=== PATIENT | male | born 1975 | race Caucasian/White ===

== ENCOUNTER 2023-04-01 03:10 | Observation (INO) ==
[2023-04-01] MEDS ORDERED: Al Hydrox/Mg Hydrox/Simet LIQ 30 ML UDC PO ONE (06:40)
[2023-04-01 07:32] LABS: ABS Lymphocytes 1.2 10^3/uL (1.0-4.8); ABS Monocytes 0.4 10^3/uL (0.0-1.1); ABS Neutrophils 6.8 10^3/uL (1.5-7.6); ABS Nucleated RBC 0.01 10^3/ul; Eosinophil % 0.2 %; Mean Corpuscular Hemoglobin 31.9 pg (27-33); Mean Corpuscular Volume 93.6 fL (80-97); Mean Platelet Volume 8.5 fL (7.5-11.2); Nucleated Red Blood Cells % 0.1 %/100WBC (0.0-0.8); Platelet Count 247 10^3/uL (150-450); Red Cell Distribution Width 13.1 % (12-17); White Blood Count 8.5 10^3/uL (3.6-10.2)
[2023-04-01 07:47] LABS: Albumin 4.7 g/dL (3.2-5.2); Albumin/Globulin Ratio 1.7 (1-3); C Reactive Protein 3.35 mg/L (<8.01); Calcium 9.5 mg/dL (8.6-10.3); Creatinine, Serum 0.94 mg/dL (0.67-1.17); Globulin 2.7 g/dL (2-4); Magnesium 2.2 mg/dL (1.9-2.7); Total Bilirubin 0.8 mg/dL (0.2-1.0); Total Protein 7.4 g/dL (6.4-8.9)
[2023-04-01] MEDS ORDERED: Iohexol 350 (CONTRAST) 500 ML MDV IV ONE (08:31)
[2023-04-01 10:00] LABS: Urine Appearance Clear; Urine Bilirubin Negative (Negative); Urine Blood Negative (Negative); Urine Color Straw; Urine Glucose Negative (Negative); Urine Ketones 1+ (Negative); Urine Nitrite Negative (Negative); Urine Protein Negative (Negative); Urine Urobilinogen Negative (Negative)
[2023-04-01] MEDS ORDERED: Ondansetron 4 mg VIAL 2 MG/ML 2 ml VIAL IV PRN (14:25)
[2023-04-01] MEDS ORDERED: Morphine 2 MG/ML SYRINGE IV PRN (14:34)
[2023-04-01] MEDS ORDERED: Acetaminophen IV 1 GM/100ML 1,000 MG/100 ML BAG IV PRN (14:35)
[2023-04-01] MEDS ORDERED: Piperacillin/Tazobac 3.375 BAG 3.375 GM/100 ML BAG IV ONE ×2 (14:37→14:41)
[2023-04-01] MEDS ORDERED: Zosyn per Pharmacy NOTE FOLLOW UP SCH (15:00)
[2023-04-01] MEDS: ZOSYN 3.375 GM Q8H per EXTENDED INFUSION IV SCH (18:31)
[2023-04-02] MEDS ORDERED: Lactated Ringers 1000 ml BAG 1,000 ML IV SCH ×2 (00:01→08:00)
[2023-04-02] MEDS ORDERED: NS 0.9% 1000 ml BAG 1,000 ML IV SCH (00:01)
[2023-04-02] MEDS: ZOSYN 3.375 GM Q8H per EXTENDED INFUSION IV SCH (02:40)
[2023-04-02 07:07] LABS: ABS Lymphocytes 2.1 10^3/uL (1.0-4.8); ABS Monocytes 0.4 10^3/uL (0.0-1.1); ABS Neutrophils 1.9 10^3/uL (1.5-7.6); Hematocrit 43.5 % (38-53); Hemoglobin 14.6 g/dL (13.2-16.3); Lymphocyte % 46.6 %; Mean Corpuscular Hemoglobin 31.7 pg (27-33); Mean Corpuscular Hgb Conc 33.7 g/dL (31-36); Mean Corpuscular Volume 94.1 fL (80-97); Mean Platelet Volume 8.9 fL (7.5-11.2); Platelet Count 219 10^3/uL (150-450); Red Blood Count 4.62 10^6/uL (4.06-5.63); Red Cell Distribution Width 13.2 % (12-17); White Blood Count 4.5 10^3/uL (3.6-10.2)
[2023-04-02] MEDS ORDERED: Lidocaine 1% w EPI 1:100,000 MDV 20 ML VIAL ONE (07:09)
[2023-04-02] MEDS ORDERED: Bupivacaine 0.25% SDV 30 ML ONE (07:09)
[2023-04-02] MEDS ORDERED: Famotidine IV 10 MG/ML 2 ml VIAL (20 mg) IV ONE (07:32)
[2023-04-02 07:52] LABS: Albumin 3.9 g/dL (3.2-5.2); Albumin/Globulin Ratio 1.6 (1-3); Calcium 8.8 mg/dL (8.6-10.3); Creatinine, Serum 1.03 mg/dL (0.67-1.17); Globulin 2.4 g/dL (2-4); Potassium 3.7 mmol/L (3.5-5.0); Total Bilirubin 1.1 mg/dL (0.2-1.0); Total Protein 6.3 g/dL (6.4-8.9); eGFR CKD-EPI 89.6 (>60)
[2023-04-02] MEDS ORDERED: Famotidine IV 10 MG/ML 2 ml VIAL (20 mg) ONE (08:44)
[2023-04-02] MEDS ORDERED: Pantoprazole VIAL 40 MG VIAL IV SCH (09:00)
[2023-04-02] MEDS ORDERED: Ondansetron 4 mg VIAL 2 MG/ML 2 ml VIAL IV PRN (09:02)
[2023-04-02] MEDS ORDERED: HYDROcodone/ACETAMIN 5/325 mg TAB PO PRN (09:02)
[2023-04-02] MEDS ORDERED: Naloxone 0.4 mg VIAL 0.4 mg/ml 1 ml VIAL IV PRN (09:02)
[2023-04-02] MEDS ORDERED: fentaNYL 100 mcg/2 ml 50 MCG/ML VIAL IV PRN (09:02)
[2023-04-02] MEDS ORDERED: Midazolam 2 mg/2 ml VIAL 1 mg/ml 2 ml VIAL (2 mg) ONE (09:19)
[2023-04-02] MEDS ORDERED: Rocuronium 50 mg VIAL 10 mg/ml 5 ml VIAL (50 mg) ONE (09:19)
[2023-04-02] MEDS ORDERED: Lidocaine 2% PF 5 ML VIAL ONE (09:19)
[2023-04-02] MEDS ORDERED: fentaNYL 100 mcg/2 ml 50 MCG/ML VIAL ONE (09:19)
[2023-04-02] MEDS ORDERED: Piperacillin/Tazobac 3.375 BAG 3.375 GM/100 ML BAG IV ONE (09:43)
[2023-04-02] MEDS ORDERED: Propofol 10 MG/ML 20 ML BTL ONE (09:53)
[2023-04-02] MEDS ORDERED: Ondansetron 4 mg VIAL 2 MG/ML 2 ml VIAL ONE ×2 (09:53→11:55)
[2023-04-02] MEDS ORDERED: Dexamethasone IV 4 MG/ML VIAL 1 ml VIAL ONE (09:53)
[2023-04-02] MEDS ORDERED: HYDROcodone/ACETAMIN 5/325 mg TAB ONE (11:55)
[2023-04-02 14:21] VITALS: BP 134/70
== END 2023-04-02 14:14 | disposition home or self-care (01) ==
LOC: ED 03:10 → EDHOLD 03:10 → SSU 21:54
PROVIDERS: ADMIT Surgery; ATTEND Surgery